=== PATIENT | male | born 1970 | race Caucasian/White ===

== ENCOUNTER 2019-10-24 13:08 | Day surgery (SDC) | payer OTHER ==
[~2019-10-24] VITALS: Ht 180.3 cm; Wt 131.1 kg
[~2019-10-24 13:08] MED LIST: BUPIVACAINE/PF 0.25% ONE; FENTANYL PF 250 MCG/5ML ONE; LIDOCAINE 1%-EPI 1:100K, 20ML ONE; MIDAZOLAM 1 MG/ML, 2ML ONE; PHENYLEPHRINE 10 MG/ML ONE; ROCURONIUM 10MG/ML,5ML ONE; ROPIvacaine/PF 0.5%, 30 ML ONE; SUCCINYLCHOLINE 20 MG/ML, 10ML ONE
[2019-10-24] MEDS ORDERED: LACTATED RINGERS 1,000 ML IV STA (13:20)
[2019-10-24] MEDS ORDERED: ACETAMINOPHEN 500 MG TABLET PO STA (13:21)
[2019-10-24] MEDS ORDERED: GABAPENTIN 300 MG CAPSULE PO STA (13:21)
[2019-10-24 13:26] VITALS: BP 147/92
[2019-10-24] MEDS ORDERED: NO MEDS PER PT (13:31)
[2019-10-24] MEDS ORDERED: ACETAMINOPHEN 500 MG TABLET ONE (13:38)
[2019-10-24] MEDS ORDERED: GABAPENTIN 300 MG CAPSULE ONE (13:38)
[2019-10-24] MEDS ORDERED: EPINEPHRINE 1 MG/ML, 1ML INFIL ONE (14:10)
[2019-10-24] MEDS ORDERED: MIDAZOLAM 1 MG/ML, 2ML IV PRN (14:30)
[2019-10-24] MEDS ORDERED: hydrALAzine 20 MG/ML, 1ML IV PRN (14:30)
[2019-10-24] MEDS ORDERED: PROMETHAZINE 25 MG/ML, 1ML IV PRN (14:30)
[2019-10-24] MEDS ORDERED: ALBUTEROL/IPRATROPIUM 2.5MG/0.5MG, 3 ML NPPB PRN (14:30)
[2019-10-24] MEDS ORDERED: MEPERIDINE/PF 25MG/ML,1ML IVPush PRN (14:30)
[2019-10-24] MEDS ORDERED: OXYcodone 5 MG/5 ML ORAL.SOL UDC PO PRN (14:30)
[2019-10-24] MEDS ORDERED: HYDROmorphone 2 MG/ML, 1ML IVPush PRN (14:30)
[2019-10-24] MEDS ORDERED: FENTANYL PF 100 MCG/2ML IV PRN (14:30)
[2019-10-24] MEDS ORDERED: METOPROLOL 1 MG/ML, 5ML IV PRN (14:30)
[2019-10-24] MEDS ORDERED: ONDANSETRON 2MG/ML, 2ML ONE (14:54)
[2019-10-24] MEDS ORDERED: PROPOFOL 10 MG/ML, 20ML ONE (14:54)
[2019-10-24] MEDS ORDERED: BUPIVACAINE/PF 0.5% ONE (14:54)
[2019-10-24] MEDS ORDERED: CEFAZOLIN 1,000 MG ONE (14:54)
[2019-10-24] MEDS ORDERED: DEXAMETHASONE 4 MG/ML, 1ML ONE (14:54)
[2019-10-24] MEDS ORDERED: LACTATED RINGERS 1,000 ML IV SCH (15:00)
== END 2019-10-24 17:30 | disposition home or self-care (01) ==
LOC: OUT 13:08
PROVIDERS: ATTEND Orthopaedic Surgery
DX: M75.111 Incomplete rotator cuff tear or rupture of right shoulder, not specified as traumatic (principal); M25.811 Other specified joint disorders, right shoulder; M19.011 Primary osteoarthritis, right shoulder; M75.31 Calcific tendinitis of right shoulder; S43.431A Superior glenoid labrum lesion of right shoulder, initial encounter; M65.4 Radial styloid tenosynovitis [de Quervain]; Z79.899 Other long term (current) drug therapy; X58.XXXA Exposure to other specified factors, initial encounter; Y93.89 Activity, other specified; Y92.89 Other specified places as the place of occurrence of the external cause; Y99.8 Other external cause status; Z98.890 Other specified postprocedural states
CPT/HCPCS: 29823; 29824; 29826; J0171; J0330; J0690; J1100; J2250; J2370; J2405; J2704; J3010; J3490; J7120; J2795